=== PATIENT | female | born 1995 | race Caucasian/White ===

== ENCOUNTER 2023-10-05 14:48 | Emergency (ER) | payer OTHER, SELFPAY ==
[2023-10-05 14:52] VITALS: BP 113/82
[2023-10-05 16:03] VITALS: BP 121/58; BMI 29.2
[2023-10-05] MEDS: NSS 1000 IV (16:20)
--- NOTE | 2023-10-05 16:23 | ED.GENMED ---
History of Present Illness
<Radha Escobar PA-C - Last Filed: 10/05/23 19:34>
General
Chief Complaint: Abdominal Pain
Source: patient
Exam Limitations: none
Time Seen by Provider: 10/05/23 15:55
Nursing documentation reviewed up to this point in time: agreed with
History of Present Illness
History of Present Illness:
Patient is a 28 year old female presenting for evaluation of upper abdominal pain associated with nausea and vomiting. Patient states that at 2 AM she was woken from sleep with severe upper abdominal pain. She describes an intermittent, cramping
pain across her entire upper abdomen. Pain persisted and intermittent fashion and early afternoon she started to have significant nausea and vomiting. She also had a few episodes of diarrhea. Patient denies any associated fever, chills, chest
pain, shortness of breath, or urinary symptoms. Patient denies any similar symptoms in the past.
Patient states that she had a breaded pork chop and vegetables for dinner last night.
Patient is currently 8 weeks and does say she had cholestasis of .
Patient does report that both her mother and father about her gallbladder removed.
Past History
<Manuel Roque MD - Last Filed: 10/05/23 19:08>
Past History
ED Past Medical History: None
Review of Systems
<Radha Escobar PA-C - Last Filed: 10/05/23 19:34>
Review of Systems
Allergies reviewed?: Yes
All Other Systems: ROS reviewed and negative except as documented in HPI and ROS
Phy Exam
<Radha Escobar PA-C - Last Filed: 10/05/23 19:34>
Physical Exam
Physical Exam:
Vitals: Patient's vital signs are stable. Afebrile
General: Patient is mildly uncomfortable due to pain, no acute distress. Nontoxic-appearing
Skin: Warm and dry, no rashes or lesions
Head: Normocephalic, atraumatic
Eyes: Sclera nonicteric. EOMs intact. No nystagmus.
Throat: Protecting airway
Neck: Normal ROM, no cervical spine tenderness, no meningismus
Cardiac: Regular rate and rhythm, no murmurs.
Pulm: Normal respiratory effort, no wheezes, rales, rhonchi heard on exam.
Abdomen: Abdomen soft. Moderate abdominal tenderness in upper abdomen right upper quadrant > left upper quadrant. Some voluntary guarding. No CVA tenderness
Extremities: No evidence of cyanosis or edema. Great distal pulses
Neuro: AAOx3. CN II-XII intact. No focal neurologic deficits.
Psychiatric: Normal affect.
Course
<Radha Escobar PA-C - Last Filed: 10/05/23 19:34>
Orders/Labs/Results
Orders:
Orders
10/05/23 16:16
0.9% Sodium Chloride 1000 ml [Nss] 1,000 ml IV BOLUS
Ketorolac [Toradol] 15 mg IV NOW STA
Ondansetron Injectable [Zofran] 4 mg IV NOW STA
Test Result ONCE
US Abdomen Complete/Upper Urgent
Comment:
Reason For Exam: Upper abdominal pain +n, +V
10/05/23 16:19
Complete Blood Count/With Diff Urgent
Comprehensive Metabolic Panel Urgent
HCG, Serum Qualitative Screen Urgent
Lipase Urgent
10/05/23 17:45
CT Abd/Pel (IV only)-[facility] only Urgent
Comment: Negative US
Reason For Exam: Right abdominal pain, +N/+V, mild leukocytosis;
10/05/23 18:22
Acetaminophen [Tylenol] 650 mg PO NOW STA
Ketorolac [Toradol] 15 mg IV NOW STA
10/05/23 18:33
Ondansetron Injectable [Zofran] 4 mg IV NOW STA
10/05/23 18:47
0.9% Sodium Chloride 500 ml [Nss] 500 ml IV BOLUS
10/05/23 19:15
0.9% Sodium Chloride 500 ml [Nss] 500 ml IV BOLUS
Abnormal Lab Results
10/05/23
16:19
WBC 13.3 H 10^3/uL
(4.8-10.8)
Abs Immat Gran (auto) 0.1 H 10^3/uL
(0-0.05)
Absolute Neuts (auto) 11.9 H 10^3/uL
(1.4-6.5)
Absolute Lymphs (auto) 0.7 L 10^3/uL
(1.2-3.4)
Neutrophils % 89.5 H %
(42.2-75.2)
Lymphocytes % 4.9 L %
(20.5-51.1)
BUN 18 H mg/dl
(7-17)
10/05/23 16:19
10/05/23 16:19
Vital Signs
Initial and Last Documented VS:
Initial Vital Signs
Temp Pulse Resp BP Pulse Ox
99.5 F 99 16 113/82 98
10/05/23 14:52 10/05/23 14:52 10/05/23 14:52 10/05/23 14:52 10/05/23 14:52
Last Documented Vital Signs
Temp Pulse Resp BP Pulse Ox
99.5 F 99 16 91/55 99
10/05/23 14:52 10/05/23 14:52 10/05/23 14:52 10/05/23 18:06 10/05/23 18:30
<Manuel Roque MD - Last Filed: 10/05/23 19:08>
Orders/Labs/Results
Orders:
Orders
10/05/23 16:16
0.9% Sodium Chloride 1000 ml [Nss] 1,000 ml IV BOLUS
Ketorolac [Toradol] 15 mg IV NOW STA
Ondansetron Injectable [Zofran] 4 mg IV NOW STA
Test Result ONCE
US Abdomen Complete/Upper Urgent
Comment:
Reason For Exam: Upper abdominal pain +n, +V
10/05/23 16:19
Complete Blood Count/With Diff Urgent
Comprehensive Metabolic Panel Urgent
HCG, Serum Qualitative Screen Urgent
Lipase Urgent
10/05/23 17:45
CT Abd/Pel (IV only)-[facility] only Urgent
Comment: Negative US
Reason For Exam: Right abdominal pain, +N/+V, mild leukocytosis;
10/05/23 18:22
Acetaminophen [Tylenol] 650 mg PO NOW STA
Ketorolac [Toradol] 15 mg IV NOW STA
10/05/23 18:33
Ondansetron Injectable [Zofran] 4 mg IV NOW STA
10/05/23 18:47
0.9% Sodium Chloride 500 ml [Nss] 500 ml IV BOLUS
10/05/23 19:15
0.9% Sodium Chloride 500 ml [Nss] 500 ml IV BOLUS
Abnormal Lab Results
10/05/23
16:19
WBC 13.3 H 10^3/uL
(4.8-10.8)
Abs Immat Gran (auto) 0.1 H 10^3/uL
(0-0.05)
Absolute Neuts (auto) 11.9 H 10^3/uL
(1.4-6.5)
Absolute Lymphs (auto) 0.7 L 10^3/uL
(1.2-3.4)
Neutrophils % 89.5 H %
(42.2-75.2)
Lymphocytes % 4.9 L %
(20.5-51.1)
BUN 18 H mg/dl
(7-17)
10/05/23 16:19
10/05/23 16:19
Vital Signs
Initial and Last Documented VS:
Initial Vital Signs
Temp Pulse Resp BP Pulse Ox
99.5 F 99 16 113/82 98
10/05/23 14:52 10/05/23 14:52 10/05/23 14:52 10/05/23 14:52 10/05/23 14:52
Last Documented Vital Signs
Temp Pulse Resp BP Pulse Ox
99.5 F 99 16 91/55 99
10/05/23 14:52 10/05/23 14:52 10/05/23 14:52 10/05/23 18:06 10/05/23 18:30
<Radha Escobar PA-C - Last Filed: 10/05/23 19:34>
MDM/Problems Addressed
Differential Diagnosis Includes:
Not limited to: Biliary colic, cholecystitis, choledocholithiasis, pancreatitis, gastroenteritis
MDM/Problems Addressed:
28-year-old female presenting with acute onset upper abdominal pain with associated nausea, vomiting, diarrhea since this morning. No known fever or chills. Vital signs are stable on arrival, patient is afebrile. Physical exam as above. Patient
is relatively well-appearing, in mild distress due to pain. She is nontoxic-appearing. Heart regular rate and rhythm. Lungs clear bilaterally. Patient does have some mild to moderate tenderness in upper abdomen and right upper quadrant> left
upper quadrant. No rebound tenderness or guarding. No CVA tenderness. No tenderness at McBurney's point. Patient was given Toradol, fluids, Zofran. Labs were initiated which show mild leukocytosis of 13.3, otherwise no clinically significant
abnormalities. An ultrasound was obtained of the abdomen to rule out gallbladder etiology which was normal. It was decided to proceed with a CT scan given patient's symptoms and to rule out possible appendicitis.
CT report reviewed which showed enteritis. This would explain patient's symptoms. There were some small hepatic lesions noted for which patient was recommended to have followed up outpatient with an MRI. Patient was provided CT report for
reference. No indication for admission at this time. Patient has been tolerating p.o. water intake without any episodes of vomiting. She is otherwise stable. Will discharge with supportive care, close return precautions. Will send Zofran to
take as needed. Recommend bland diet and advance as tolerated. She will follow-up with PCP this week. Patient seen with attending physician.
Chronic conditions affecting care:
N/A
Acute Exacerbation and/or Progression of Chronic Illness:
N/A
<Radha Escobar PA-C - Last Filed: 10/05/23 19:34>
*Radiology
Radiology exam reviewed: preliminary read by ED provider and radiology read reviewed
*Pulse Oximetry
Patient hypoxic: no
*EKG
Interpreted by ED Provider?: NA
*Calculus Tutor Interpretation
Rate: Calculus Tutor- N/A
*Critical Care Note
Total Time (30-74mins, 75-104mins- exclusive of procedures): Not Applicable
ED Attending Note
<Radha Escobar PA-C - Last Filed: 10/05/23 19:34>
-
Portions of this chart may have been created with voice recognition software.� Occasional wrong word or��sound alike� substitutions may have occurred due to the inherent limitations of voice recognition software.
<Manuel Roque MD - Last Filed: 10/05/23 19:08>
ED Attending Note
Patient seen and examined by attending physician: Yes
I performed the substantive portion of visit, reviewed & personally made and approve the management plan that is documented in note by myself or ANGELA.: Yes
ED Attending Note:
28-year-old female G1, P1. 8 weeks . Had some gallbladder issues and hemorrhaged after the delivery. This was at another facility. However was only in the hospital for a day. Was doing well till 2 AM when she developed abdominal pain
nausea vomiting and some mild diarrhea. Patient points to mostly upper abdomen although some right mid abdominal tenderness and pain. No flank or back pain
On physical exam patient is nontoxic in no distress. Warm and dry. Perfusing well. No respiratory distress. Mild epigastric mild right upper quadrant and mild right mid abdominal tenderness. No rebound or guarding no mass or hernia. No
respiratory distress.
Impression history of gallbladder issue during . Pain located in the general right upper quadrant area. Mild leukocytosis. LFTs and lipase pending. Ultrasound pending. If ultrasound is negative would consider CT scan.
Discharge Plan
Departure
Patient Disposition: Home (Routine Discharge)
Date of Disposition: 10/05/23
Time of Disposition: 19:07
Patient with high blood pressure during this ER visit?: No
Condition: Good
Covid-19: Not Applicable
Discharge Problem:
Enteritis, Nausea & vomiting
Instructions: Nausea and Vomiting, Adult (DC), Abdominal Pain
Prescriptions:
New
ondansetron 4 mg tablet,disintegrating
4 mg PO Q8H PRN (Reason: nausea and vomiting) Qty: 10 0RF
Referrals:
UNKNOWN - PT DOES,NOT KNOW [Family Provider] -
Activity Restrictions/Additional Instructions:
RETURN TO THE EMERGENCY DEPARTMENT WITH ANY HIGH FEVERS, SEVERE ABDOMINAL PAIN, INTRACTABLE NAUSEA/VOMITING, SIGNS OF SEVERE DEHYDRATION, WORSENING IN CURRENT SYMPTOMS, OR ANY OTHER CONCERNS
-A prescription has been sent to your pharmacy for Zofran. You can take this up to every 8 hours as needed for persistent nausea/vomiting. You can take Motrin and/or Tylenol as needed for discomfort. It is very important that you stay
well-hydrated and drink plenty of water. I recommend a bland diet over the next few days and advancing as tolerated.
-You should follow-up with your primary care provider in a few days to ensure that symptoms are improving
-As discussed�there were small lesions noted on your liver on the CT scan. You should have these followed up with an outpatient MRI. Please follow-up with your primary care doctor for further evaluation.
Monitor your symptoms closely and return to the emergency department any acute worsening/new symptoms.
Interventions
Interventions:
*Risk Screen - Suicide Last Done: 10/05/23 16:04
*General Assessment Last Done: 10/05/23 16:04
*Neglect/Abuse Screening Last Done: 10/05/23 16:04
ED- Fall Risk Assessment Last Done: 10/05/23 16:04
*ED COVID-19 Vaccine History Last Done: 10/05/23 16:04
ZV-[id number]-[id number] Assessment Last Done: 10/05/23 16:04
Discharge Date and Time
Print Language: HEBREW
[2023-10-05] MEDS: TORADOL 15 MG IV ×2 (16:24→18:25)
[2023-10-05] MEDS: ZOFRAN 4 MG IV ×2 (16:24→18:35)
[2023-10-05 16:28] LABS: % Basophils 0.2 % (0-2); % Eosinophils 0.2 % (0-6); % Immature Granulocytes 0.4 % (0-0.5); % Lymphocytes 4.9 % (20.5-51.1); % Monocytes 4.8 % (1.7-9.3); % Neutrophils 89.5 % (42.2-75.2); Absolute Immature Granulocytes 0.1 10^3/uL (0-0.05); Absolute Lymphocytes 0.7 10^3/uL (1.2-3.4); Absolute Monocytes 0.6 10^3/uL (0.1-0.6); Absolute Neutrophils 11.9 10^3/uL (1.4-6.5); Hematocrit 39.4 % (37.0-47.0); Hemoglobin 13.3 g/dL (12.0-16.0); Mean Corp Hgb Conc. 33.8 g/dL (33.0-37.0); Mean Corpuscular Hgb 27.9 pg (27.0-31.0); Mean Corpuscular Volume 82.6 fL (81.0-99.0); Mean Platelet Volume 9.7 fL (7.4-10.4); Nucleated Red Blood Cells % 0 %; Platelet Count 270 10^3/uL (130-400); Red Blood Cell Count 4.77 10^6/uL (4.20-5.40); Red Cell Dist. Width 12.3 % (11.5-14.5); White Blood Cell Count 13.3 10^3/uL (4.8-10.8)
[2023-10-05 16:53] LABS: HCG, Serum Qualitative Screen Negative
[2023-10-05 16:56] LABS: Albumin 4.5 g/dl (3.5-5.0); Blood Urea Nitrogen 18 mg/dl (7-17); Carbon Dioxide 25 mmol/L (22-30); Estimated Creatinine Clearance 95 ml/min; Total Bilirubin 0.9 mg/dl (0.2-1.3); Total Protein 6.9 g/dl (6.3-8.2); eGFR > 60.00
[2023-10-05 17:13] LABS: ALT (SGPT) 18 U/L (0-35); AST (SGOT) 29 U/L (14-36); Alkaline Phosphatase 67 U/L (38-126); Calcium 9.7 mg/dl (8.4-10.2); Chloride 104 mmol/L (98-107); Glucose 90 mg/dl (70-99); Lipase 53 U/L (23-300); Potassium 4.6 mmol/L (3.5-5.1); Sodium 136 mmol/L (135-145)
[2023-10-05 18:06] VITALS: BP 91/55
[2023-10-05] MEDS: TYLENOL 650 MG PO (18:25)
[2023-10-05 19:02] VITALS: BP 107/58
[2023-10-05] MEDS: NSS 500 IV (19:25)
== END 2023-10-05 19:54 | disposition home or self-care (01) ==
LOC: EMR 14:48
PROVIDERS: Physician Assistant; EMERGENCY PHYSICIAN Emergency Medicine
DX: R10.10 Upper abdominal pain, unspecified (principal); K52.9 Noninfective gastroenteritis and colitis, unspecified; R11.2 Nausea with vomiting, unspecified
CPT/HCPCS: 99284; 96374; 96375; 96376; 96361; 74177; 76700; 80053; 83690; 84703; 85025; Q9967